=== PATIENT | male | born 1970 | race Caucasian/White ===

== ENCOUNTER 2020-04-22 00:26 | Outpatient (CLI) | payer OTHER, SELFPAY ==
[2020-04-22 17:34] LABS: SARS-CoV-2 RNA PCR Negative
== END 2020-04-22 00:27 | disposition home or self-care (01) ==
LOC: ANHCOVIDDT 00:26
PROVIDERS: Visit Provider Internal Medicine Gastroenterology
DX: Z01.812 Encounter for preprocedural laboratory examination (principal); Z20.822 Contact with and (suspected) exposure to COVID-19
CPT/HCPCS: C9803; U0003; U0005

== ENCOUNTER 2020-04-25 00:25 | Day surgery (SDC) | payer OTHER, SELFPAY ==
[2020-04-08 09:17] VITALS: BMI 21.7
[2020-04-25 07:50] VITALS: BP 97/73; PULSE 94; RESP 16; TEMP 36.6; O2SAT 100
[2020-04-25] MEDS: LACTATED RINGERS 1,000 ML 150 ML IV CONT (08:01)
--- NOTE | 2020-04-25 09:22 | P.PNAN_ITS ---
Anes - Initial Pre Proc Eval Procedure: Operation Date: 04/25/20 09:00 Proposed Procedures p Screening Colonoscopy - Jared Sanders DO Date/Time: 04/25/20 09:22 Surgeon: Jared Sanders DO Pre Op Diagnosis: Neoplasm Screening Patient Data Age: 49 Gender: M Height: 6 ft 5 in Weight: 82.1 kg Last Vital Signs Temp 97.9 F 04/25/20 07:50 Pulse 94 04/25/20 07:50 Resp 16 04/25/20 07:50 BP 97/73 L 04/25/20 07:50 Pulse Ox 100 04/25/20 07:50 Allergies Allergy/AdvReac Type Severity Reaction Status Date / Time cephalexin Allergy Hives Verified 04/25/20 07:49 Penicillins Allergy HIVES Verified 04/25/20 07:49 Home Medications Medication Instructions Recorded Confirmed Type No Home Medications 04/08/20 04/25/20 History Patient hx anesthesia problems: none Family hx anesthesia problems: none [facility] Past Medical History Medical History (Updated 04/25/20 @ 09:22 by Tomasz Mims MD) Healthy adult Social History Social History Smoking status: Never smoker Alcohol intake: current Drinks per week: 5 Substance use type: does not use Living arrangements: with family Spiritual care concerns: No Anes - Eval Final PreProcedure Day of Procedure 04/25/20 09:22 Patient weight: normal Heart: regular rate and rhythm Lungs: clear to auscultation Airway: Mallampati scale class II Neurological: alert and oriented Last oral intake: >/= 8 hours ASA classification: II Emergent: no Anesthetic plan: proceed Anesthesia type and monitoring: general GIVS and standard monitoring Informed Consent: The patient's anesthetic plan and its attendant risks and benefits were discussed with the patient/family/POA. Questions were solicited and answers provided to the satisfaction of the patient/family/POA.
--- NOTE | 2020-04-25 09:37 | WPDGICN ---
GI Consult Note Consult date/time: 04/25/20 09:37 HPI: Reason for visit is colonoscopy. Very pleasant gentleman seen in consultation at the request of the primary physician. Impression: Screening colonoscopy. The patient has a family history of colorectal cancer. Recommendation: Colonoscopy. History: This very pleasant gentleman has a negative GI review systems. This is his 1st colonoscopy. He does have a maternal aunt with colorectal cancer. Physical examination: General: very pleasant patient in no acute distress. HEENT: Head was normocephalic sclerae is clear mouth without masses neck was supple. Heart: Rate rhythm regular without S3 or S4. Lungs: CTA. Abdomen: Soft with no guarding or rigidity. Bowel sounds were active. Neurologic: Cranial nerves 2 through 12 intact. No focal defects. No clonus. Musculoskeletal system: Revealed no joint tenderness or swelling no muscle atrophy. Extremities: Reveal no significant edema. Skin: Warm and dry with normal turgor. Mental status: intact. Patient is alert and oriented. Review of Systems Review of Systems: All systems reviewed & are unremarkable except as noted in HPI and below PMFSH Past Medical History Medical History (Updated 04/25/20 @ 09:22 by Tomasz Mims MD) Healthy adult Social History Social History Smoking status: Never smoker Alcohol intake: current Drinks per week: 5 Substance use type: does not use Living arrangements: with family Spiritual care concerns: No Meds Home Medications and Allergies Home Medications Medication Instructions Recorded Confirmed Type No Home Medications 04/08/20 04/25/20 History Allergies Allergy/AdvReac Type Severity Reaction Status Date / Time cephalexin Allergy Hives Verified 04/25/20 07:49 Penicillins Allergy HIVES Verified 04/25/20 07:49 Vital Signs Vital Signs - 24 hr 04/25/20 07:50 Temperature 36.6 C Pulse Rate 94 Respiratory Rate 16 Blood Pressure 97/73 L Pulse Oximetry 100
[2020-04-25 10:15] VITALS: BP 87/50; PULSE 70; RESP 17; O2SAT 98
[2020-04-25 10:25] VITALS: BP 88/56; PULSE 66; RESP 14; O2SAT 98
[2020-04-25 10:35] VITALS: BP 93/65; PULSE 63; RESP 16; O2SAT 99
[2020-04-25 10:45] VITALS: BP 103/69; PULSE 58; RESP 18; O2SAT 99
== END 2020-04-25 10:58 | disposition home or self-care (01) ==
PROVIDERS: PCP Family Medicine; Visit Provider Internal Medicine Gastroenterology
PROC: 0DJD8ZZ Inspection of Lower Intestinal Tract, Via Natural or Artificial Opening Endoscopic (ICD-10-PCS; CPT 45378; principal; 2020-04-25 09:00)
DX: Z12.11 Encounter for screening for malignant neoplasm of colon (principal); D12.2 Benign neoplasm of ascending colon; K64.8 Other hemorrhoids; Z80.0 Family history of malignant neoplasm of digestive organs
CPT/HCPCS: 45385; 88305; C9803; J1200; J2704; J7120; U0003; U0005